=== PATIENT | female | born 1945 | race Caucasian/White ===

== ENCOUNTER 2021-01-22 17:07 | Inpatient (IN) ==
[2021-01-22] MEDS ORDERED: ONDANSETRON INJ 2 MG/ML 2 ML VIAL IV STA (17:45)
[2021-01-22] MEDS ORDERED: SODIUM CHLORIDE 0.9% 1000ML 1,000 ML IV STA (17:45)
--- NOTE | 2021-01-22 18:12 | XRay Report ---
XR chest 1V portable CLINICAL HISTORY: vomiting COMPARISON STUDY: 02/22/2020 FINDINGS: The cardiac and mediastinal contours remain stable. There is no failure. There is no focal pulmonary consolidation. There are no pleural effusions. There is a suspected prior left mastectomy.[ IMPRESSION: No active disease in the chest. ACT 112: Negative or not required by law. Electronically signed by: Anatoliy Gary M.D. 01/22/2021 6:10 PM
--- NOTE | 2021-01-22 18:13 | XRay Report ---
XR KUB/Abdomen 1 view CLINICAL HISTORY: Abdominal discomfort VOMITING COMPARISON STUDY: No previous studies for comparison. FINDINGS: There are no abnormally dilated loops of large or small bowel. Surgical clips are visualize d within the upper pelvis possibly related to a prior tubal ligation. IMPRESSION: Nonobstructive bowel gas pattern. ACT 112: Negative or not required by law. Electronically signed by: Anatoliy Gary M.D. 01/22/2021 6:11 PM
[2021-01-22 18:29] LABS: Hemoglobin 13.1 g/dL (12.0-16.0); Immature Granulocytes # (auto) 0.02 K/uL (0.00-0.02); Immature Granulocytes % (auto) 0.3 %; Lymphocytes # (auto) 0.91 K/uL (1.2-3.4); Lymphocytes % (auto) 11.5 %; Mean Corpuscular Hemoglobin 31.3 pg (25-34); Mean Corpuscular Hgb Conc 36.4 g/dL (32-36); Mean Corpuscular Volume 86.1 fL (80-100); Mean Platelet Volume 9.6 fL (7.4-10.4); Monocytes # (auto) 0.51 K/uL (0.11-0.59); Monocytes % (auto) 6.4 %; Neutrophils # (auto) 6.48 K/uL (1.4-6.5); Neutrophils % (auto) 81.8 %; Platelet Count 179 K/uL (130-400); RDW Coefficient of Variation 12.5 % (11.5-14.5); RDW Standard Deviation 40.3 fL (36.4-46.3); Red Blood Count 4.18 M/uL (4.2-5.4); White Blood Count 7.92 K/uL (4.8-10.8)
--- NOTE | 2021-01-22 18:42 | Emergency Department Note ---
Impression & Plan Weakness, Acute hyponatremia, Abnormal EKG, Nausea, COVID-19 ED Provider Note NAME: SEB HERRERA AGE: 75 SEX: F : 1945 ARRIVES VIA: Walk-In INFORMANT: Patient, ED PROVIDER(S): Dallas Morales DO CHIEF COMPLAINT: Dehydration HPI: The patient is a 75-year-old female who presented to the emergency department for an evaluation of generalized weakness. The patient was exposed to COVID-19 12 days ago. She started having symptoms approximately 9 days ago. Her symptoms have included headache as well as fatigue. She also notices a cough. She has had fever intermittently. She has been taking ibuprofen as well as acetaminophen for the symptoms. She called her family doctor today and was referred to the emergency department for possible dehydration. There is also concerned that the patient may be taking too much acetaminophen and ibuprofen. Her last dose of acetaminophen was earlier today. The patient states that she has been not able to eat because of decreased appetite. She also notices decreased taste. She currently denies having any chest pain or lower extremity swelling. She states that she has been compliant with her other medications. ROS: See above HPI for pertinent positives & negatives. A total of 10 systems reviewed and were otherwise negative. PAST MEDICAL HISTORY: See Below PAST SURGICAL HISTORY: See Below FAMILY HISTORY: See Below SOCIAL HISTORY: See Below HOME MEDICATIONS: See Below ALLERGIES: See Below VITALS: See Below PHYSICAL EXAMINATION: GENERAL: Patient is awake alert in no acute distress patient is resting comfortably and showing no signs of anxiety EYES: The conjunctivae are clear. The pupils are round and reactive. EARS, NOSE, MOUTH AND THROAT: The nose is without any evidence of any deformity. NECK: The neck is nontender and supple. RESPIRATORY: Normal respiratory effort is noted there is no evidence of wheezing rhonchi or rales CARDIOVASCULAR: Regular rate and rhythm noted there no murmurs rubs or gallops normal S1 normal S2. GASTROINTESTINAL: The abdomen is soft. Abdomen is nontender. MUSCULOSKELETAL/EXTREMITIES: There is no evidence of gross deformity full range of motion is noted in the hips and shoulders. SKIN: There is no obvious evidence of any rash. There are no petechiae, pallor or cyanosis noted. NEUROLOGIC: Patient is awake alert and oriented x3 strength is symmetric patellar reflexes are 2+ bilaterally MEDICAL DECISION MAKING: The patient is a 75-year-old female who presented to the emergency department for an evaluation of nausea and decreased p.o. intake. The patient was diagnosed with COVID-19. She has had symptoms for approximately 9 days. The patient had a positive Covid test last . Since that time she is had decreased intake and nausea. The patient was sent to the emergency department by her primary care physician's office for IV fluids and possible dehydration. I discussed the patient's laboratory and radiographic studies with her. She was found to have significant hyponatremia which may cause the patient's symptoms today. Because of the degree of hyponatremia and the patient symptomatology I did discuss this case with the on-call [facility] group. They have agreed to evaluate the patient in the emergency department for further management and disposition. Triage Nursing notes reviewed. Prior medical records reviewed Vital Signs: reviewed and remarkable for elevated blood pressure. Differential diagnosis: Infection, dehydration, metabolic abnormality, hypo/hyperglycemia, electrolyte disturbance, anemia, hypoxia, cardiac sources, intracerebral event, toxicologic, neurologic, as well as other pathologies. ER treatment provided: See below Diagnostics interpreted by me: ECG: EKG was obtained in the emergency department. My interpretation is sinus rhythm at 75 bpm. There was no ectopy. Inferior and low lateral ST depressions were noted. This tracing was compared to February [id number]. The ST segment depression does appear increased compared to previous otherwise no specific changes were noted. Cardiac Monitoring: An order was placed for continuous cardiac monitoring. The monitor shows a rate of 82 bpm with sinus rhythm. Laboratory studies: As stated above and show below. Imaging studies: See below Consultation(s): 2005: I discussed this case with Dr. Kincaid who is on-call for the [facility] group. He will evaluate the patient in the emergency department for further management and disposition. Past Med/Surg History Medical History DCIS (ductal carcinoma in situ) of breast Deep vein thrombosis LEFT THIGH RT KNEE OVER 35 YEARS AGO "AFTER CHILDBIRTH" Removal of ovarian cyst (07/11/13) Temporomandibular joint disorder Surgical History Family history of reaction to anesthesia SON-REQUIRED TO STAY LONGER AFTER ANESTHESIA PROCEDURE/? WITH DETAILS H/O ovarian cystectomy History of adenoidectomy 1953 History of anesthesia reaction AWARENESS BUT COULD NOT SPEAK/MOVE DURING RECOVERY FOR TUBAL LIGATION History of appendectomy History of bilateral tubal ligation 1982 History of colonoscopy 03/25/09 History of dilatation and curettage 1974 History of mastectomy 12/30/06 Left breast - partial mastectomy with lymphadenectomy History of tonsillectomy 1953 History of tooth extraction Hx of breast biopsy 11/29/06 - left breast stereotactic biopsy S/P breast reconstruction, left 2007 & 02/20/19 Family History Mother Family history of diabetes mellitus Diabetes Brother Family history of diabetes mellitus Grandmother (Maternal) Family history of diabetes mellitus Grandmother (Maternal) Diabetes Father Leukemia Prostate cancer Grandfather (Maternal) Stroke Other Breast cancer Dyslipidemia Social History Smoking Status: Former smoker Second Hand Exposure: No; Hx Alcohol Use: Yes Alcohol type: wine Hx Substance Use: No Preferred Language: Omani Communication Ability: Effective Mobile Tester Required: No Beliefs That Will Affect Care: None Current Living Situation: Alone current occupational status: retired Feels Safe at Home: Yes Dental Care, Regularly: Yes Seatbelt Use: always Sunscreen Use: No Assistive Devices: Contacts and Glasses Allergies Allergies Allergy/AdvReac Type Severity Reaction Status Date / Time No Known Drug Allergies Allergy Verified 12/13/19 09:20 Home Meds Home Medications Medication Instructions Recorded Confirmed Caltrate 600 plus D 1 tab PO QAM 02/04/19 01/22/21 alendronate [Fosamax] 1 tab PO WK 02/04/19 01/22/21 biotin 1 mg capsule 1 mg PO QAM cap 12/13/19 01/22/21 cholecalciferol (vitamin D3) 125 5,000 unit PO QAM tab 12/13/19 01/22/21 mcg (5,000 unit) tablet magnesium 250 mg tablet 250 mg PO QAM tab 12/13/19 01/22/21 multivit with 1 tab PO QAM tab 12/13/19 01/22/21 trunntkt-crfc-VO-lutein 8 mg iron-400 mcg-300 mcg tablet Results & Data (ED) Vital Signs Vital Signs - 24 hr 01/22/21 17:17 01/22/21 18:21 01/22/21 19:04 Temperature 37.0 C Temperature Source Temporal Artery Scan Pulse Rate 74 79 Respiratory Rate 18 16 Respiratory Effort / Characteristics Non-Labored Respiratory Depth Normal Respiratory Pattern Regular Blood Pressure 130/79 146/89 H Blood Pressure Mean 96 108 Blood Pressure Position Sitting Pulse Oximetry 99 98 Oxygen Delivery Method Room Air Room Air Sepsis Recent Fever Within 48 Hours Yes Sepsis New/Unexplained Change in Mental Status No Sepsis Action Taken by Nursing No Action Required 01/22/21 19:06 01/22/21 19:30 01/22/21 20:00 Temperature Temperature Source Pulse Rate 76 70 77 Respiratory Rate 14 15 20 Respiratory Effort / Characteristics Respiratory Depth Respiratory Pattern Blood Pressure 135/70 141/78 H Blood Pressure Mean 91 99 Blood Pressure Position Pulse Oximetry 97 99 97 Oxygen Delivery Method Sepsis Recent Fever Within 48 Hours Sepsis New/Unexplained Change in Mental Status Sepsis Action Taken by Jail Medications Current Medication List: was personally reviewed by me Laboratory Data Attestation: I reviewed the patient's lab results. Result diagrams: 01/22/21 18:13 01/22/21 18:13 Lab Results 01/22/21 01/22/21 01/22/21 Range/Units 18:13 18:13 18:13 WBC 7.92 (4.8-10.8) K/uL RBC 4.18 L (4.2-5.4) M/uL Hgb 13.1 (12.0-16.0) g/dL Hct 36.0 L (37-47) % MCV 86.1 (80-100) fL MCH 31.3 (25-34) pg MCHC 36.4 H (32-36) g/dL RDW Std Deviation 40.3 (36.4-46.3) fL RDW Coeff of Shea 12.5 (11.5-14.5) % Plt Count 179 (130-400) K/uL MPV 9.6 (7.4-10.4) fL Immature Gran % (Auto) 0.3 % Neut % (Auto) 81.8 % Lymph % (Auto) 11.5 % [place] % (Auto) 6.4 % Eos % (Auto) 0.0 % Baso % (Auto) 0.0 % Neut # (Auto) 6.48 (1.4-6.5) K/uL Lymph # (Auto) 0.91 L (1.2-3.4) K/uL [place] # (Auto) 0.51 (0.11-0.59) K/uL Eos # (Auto) 0.00 (0-0.5) K/uL Baso # (Auto) 0.00 (0-0.2) K/uL Immature Gran # (Auto) 0.02 (0.00-0.02) K/uL PT 10.2 (9.0-12.0) Seconds INR 1.0 (0.9-1.1) APTT 29.7 (21.0-31.0) Seconds PTT Ratio 1.1 Sodium 128 L (136-145) mmol/L Potassium 3.4 L (3.5-5.1) mmol/L Chloride 96 L (98-107) mmol/L Carbon Dioxide 25 (21-32) mmol/L Anion Gap 7.0 (3-11) BUN 8 (7-18) mg/dl Creatinine 0.52 L (0.6-1.2) mg/dl Est Cr Clr Drug Dosing Not Reportable Est GFR ( Amer) 109.9 Est GFR (Non-Af Amer) 94.8 BUN/Creatinine Ratio 14.5 (10-20) Glucose 117 H (70-99) mg/dl Osmolality (280-300) mOsm/kg Calcium 8.6 (8.5-10.1) mg/dl Magnesium 2.0 (1.8-2.4) mg/dl Total Bilirubin 0.7 (0.2-1) mg/dl AST 19 (15-37) U/L ALT 24 (12-78) U/L Alkaline Phosphatase 57 (45-117) U/L Troponin I < 0.015 (0-0.045) ng/ml Total Protein 7.2 (6.4-8.2) gm/dl Albumin 3.6 (3.4-5.0) gm/dl Globulin 3.6 (2.5-4.0) gm/dl Albumin/Globulin Ratio 1.0 (0.9-2) Lipase 101 (73-393) U/L Urine Color Urine Appearance (Clear) Urine pH (4.5-7.5) Ur Specific Sylvester (1.000-1.030) Urine Protein (Negative) Urine Glucose (UA) (Negative) Urine Ketones (Negative) Urine Blood (Negative) Urine Nitrite (Negative) Urine Bilirubin (Negative) Urine Urobilinogen (Negative) Ur Leukocyte Esterase (Negative) Urine Osmolality (500-800) mOsm/kg Ur Random Sodium mmol/L 01/22/21 01/22/21 01/22/21 Range/Units 18:13 18:13 19:00 WBC (4.8-10.8) K/uL RBC (4.2-5.4) M/uL Hgb (12.0-16.0) g/dL Hct (37-47) % MCV (80-100) fL MCH (25-34) pg MCHC (32-36) g/dL RDW Std Deviation (36.4-46.3) fL RDW Coeff of Shea (11.5-14.5) % Plt Count (130-400) K/uL MPV (7.4-10.4) fL Immature Gran % (Auto) % Neut % (Auto) % Lymph % (Auto) % [place] % (Auto) % Eos % (Auto) % Baso % (Auto) % Neut # (Auto) (1.4-6.5) K/uL Lymph # (Auto) (1.2-3.4) K/uL [place] # (Auto) (0.11-0.59) K/uL Eos # (Auto) (0-0.5) K/uL Baso # (Auto) (0-0.2) K/uL Immature Gran # (Auto) (0.00-0.02) K/uL PT (9.0-12.0) Seconds INR (0.9-1.1) APTT (21.0-31.0) Seconds PTT Ratio Sodium (136-145) mmol/L Potassium (3.5-5.1) mmol/L Chloride (98-107) mmol/L Carbon Dioxide (21-32) mmol/L Anion Gap (3-11) BUN (7-18) mg/dl Creatinine (0.6-1.2) mg/dl Est Cr Clr Drug Dosing Est GFR ( Amer) Est GFR (Non-Af Amer) BUN/Creatinine Ratio (10-20) Glucose (70-99) mg/dl Osmolality 269 L (280-300) mOsm/kg Calcium (8.5-10.1) mg/dl Magnesium (1.8-2.4) mg/dl Total Bilirubin (0.2-1) mg/dl AST (15-37) U/L ALT (12-78) U/L Alkaline Phosphatase (45-117) U/L Troponin I Cancelled (0-0.045) ng/ml Total Protein (6.4-8.2) gm/dl Albumin (3.4-5.0) gm/dl Globulin (2.5-4.0) gm/dl Albumin/Globulin Ratio (0.9-2) Lipase (73-393) U/L Urine Color Yellow Urine Appearance Clear (Clear) Urine pH 7.0 (4.5-7.5) Ur Specific Sylvester 1.007 (1.000-1.030) Urine Protein Negative (Negative) Urine Glucose (UA) Negative (Negative) Urine Ketones 1+ H (Negative) Urine Blood Negative (Negative) Urine Nitrite Negative (Negative) Urine Bilirubin Negative (Negative) Urine Urobilinogen Negative (Negative) Ur Leukocyte Esterase Negative (Negative) Urine Osmolality (500-800) mOsm/kg Ur Random Sodium mmol/L 01/22/21 01/22/21 Range/Units 19:00 19:00 WBC (4.8-10.8) K/uL RBC (4.2-5.4) M/uL Hgb (12.0-16.0) g/dL Hct (37-47) % MCV (80-100) fL MCH (25-34) pg MCHC (32-36) g/dL RDW Std Deviation (36.4-46.3) fL RDW Coeff of Shea (11.5-14.5) % Plt Count (130-400) K/uL MPV (7.4-10.4) fL Immature Gran % (Auto) % Neut % (Auto) % Lymph % (Auto) % [place] % (Auto) % Eos % (Auto) % Baso % (Auto) % Neut # (Auto) (1.4-6.5) K/uL Lymph # (Auto) (1.2-3.4) K/uL [place] # (Auto) (0.11-0.59) K/uL Eos # (Auto) (0-0.5) K/uL Baso # (Auto) (0-0.2) K/uL Immature Gran # (Auto) (0.00-0.02) K/uL PT (9.0-12.0) Seconds INR (0.9-1.1) APTT (21.0-31.0) Seconds PTT Ratio Sodium (136-145) mmol/L Potassium (3.5-5.1) mmol/L Chloride (98-107) mmol/L Carbon Dioxide (21-32) mmol/L Anion Gap (3-11) BUN (7-18) mg/dl Creatinine (0.6-1.2) mg/dl Est Cr Clr Drug Dosing Est GFR ( Amer) Est GFR (Non-Af Amer) BUN/Creatinine Ratio (10-20) Glucose (70-99) mg/dl Osmolality (280-300) mOsm/kg Calcium (8.5-10.1) mg/dl Magnesium (1.8-2.4) mg/dl Total Bilirubin (0.2-1) mg/dl AST (15-37) U/L ALT (12-78) U/L Alkaline Phosphatase (45-117) U/L Troponin I (0-0.045) ng/ml Total Protein (6.4-8.2) gm/dl Albumin (3.4-5.0) gm/dl Globulin (2.5-4.0) gm/dl Albumin/Globulin Ratio (0.9-2) Lipase (73-393) U/L Urine Color Urine Appearance (Clear) Urine pH (4.5-7.5) Ur Specific Sylvester (1.000-1.030) Urine Protein (Negative) Urine Glucose (UA) (Negative) Urine Ketones (Negative) Urine Blood (Negative) Urine Nitrite (Negative) Urine Bilirubin (Negative) Urine Urobilinogen (Negative) Ur Leukocyte Esterase (Negative) Urine Osmolality 200 L (500-800) mOsm/kg Ur Random Sodium 32 mmol/L Administered Medications Discontinued Medications Sodium Chloride (Nss 1000ml) 1,000 mls @ 999 mls/hr IV .Q1H1M STA Stop: 01/22/21 18:45 Last Infusion: 01/22/21 20:10 Dose: 0 mls/hr Documented by: [id number] Admin: 01/22/21 18:21 Dose: 999 mls/hr Documented by: [id number] Ondansetron HCl (Ondansetron Inj 2 Mg/Ml 2 Ml Vial) 4 mg IV NOW STA Stop: 01/22/21 17:46 Last Admin: 01/22/21 18:21 Dose: 4 mg Documented by: [id number] Imaging Data Radiologist's Impression: Chest X-Ray 01/22/21 17:45 XR chest 1V portable CLINICAL HISTORY: vomiting COMPARISON STUDY: 02/22/2020 FINDINGS: The cardiac and mediastinal contours remain stable. There is no failure. There is no focal pulmonary consolidation. There are no pleural effusions. There is a suspected prior left mastectomy.[ IMPRESSION: No active disease in the chest. ACT 112: Negative or not required by law. Electronically signed by: Anatoliy Gary M.D. 01/22/2021 6:10 PM KUB X-Ray 01/22/21 17:45 XR KUB/Abdomen 1 view CLINICAL HISTORY: Abdominal discomfort VOMITING COMPARISON STUDY: No previous studies for comparison. FINDINGS: There are no abnormally dilated loops of large or small bowel. Surg ical clips are visualized within the upper pelvis possibly related to a prior tubal ligation. IMPRESSION: Nonobstructive bowel gas pattern. ACT 112: Negative or not required by law. Electronically signed by: Anatoliy Gary M.D. 01/22/2021 6:11 PM Discharge Plan Visit Data Chief Complaint: Referred by Doctor Stated Complaint: DEHYDRATION, COVID + ED Provider: Dallas Morales Discharge Problem: Weakness, Acute hyponatremia, Abnormal EKG, Nausea, COVID-19 Patient Disposition: Being Evaluated by Hospitalist Condition: Good Forms Stand Alone Forms: [facility] Prescriptions Prescriptions: No Action alendronate [Fosamax] 70 mg Tablet 1 tab PO WK RF: 0 Caltrate 600 plus D 600 mg (1,500 mg)-800 unit Tablet,Chewable 1 tab PO QAM RF: 0 cholecalciferol (vitamin D3) [Vitamin D3] 125 mcg (5,000 unit) tablet 5,000 unit PO QAM RF: 0 biotin 1 mg capsule 1 mg PO QAM RF: 0 Centrum Silver Women 8 mg iron-400 mcg-300 mcg tablet 1 tab PO QAM RF: 0 magnesium 250 mg tablet 250 mg PO QAM RF: 0 Referrals Referrals: Manas Uribe, [Primary Care Provider] -
[2021-01-22 18:43] LABS: Alanine Aminotransferase 24 U/L (12-78); Albumin Level 3.6 gm/dl (3.4-5.0); Aspartate Aminotransferase 19 U/L (15-37); BUN Creatinine Ratio 14.5 (10-20); Blood Urea Nitrogen 8 mg/dl (7-18); Calcium 8.6 mg/dl (8.5-10.1); Carbon Dioxide 25 mmol/L (21-32); Chloride 96 mmol/L (98-107); Est GFR (African American) 109.9; Est GFR (Non-African American) 94.8; Glucose 117 mg/dl (70-99); Lipase 101 U/L (73-393); Potassium 3.4 mmol/L (3.5-5.1); Sodium 128 mmol/L (136-145)
[2021-01-22 18:46] LABS: Alkaline Phosphatase 57 U/L (45-117); Bilirubin,Total 0.7 mg/dl (0.2-1); Globulin 3.6 gm/dl (2.5-4.0); Total Protein 7.2 gm/dl (6.4-8.2)
[2021-01-22 19:12] LABS: Partial Thromboplastin Ratio 1.1; Partial Thromboplastin Time 29.7 Seconds (21.0-31.0); Prothrombin Time 10.2 Seconds (9.0-12.0)
[2021-01-22 19:13] LABS: Troponin I < 0.015 ng/ml (0-0.045)
[2021-01-22 19:18] LABS: Appearance Urine Clear (Clear); Bilirubin Urine Negative (Negative); Blood Urine Negative (Negative); Color Urine Yellow; Glucose Urine UA Negative (Negative); Ketones Urine 1+ (Negative); Leukocyte Esterase Urine Negative (Negative); Nitrite Urine Negative (Negative); Protein Urine Negative (Negative); Specific Gravity Urine 1.007 (1.000-1.030); Urobilinogen Urine Negative (Negative)
[2021-01-22] MEDS ORDERED: POTASSIUM CHLORIDE CRTAB 20 MEQ TABCR PO STA (21:56)
[2021-01-22] MEDS ORDERED: ACETAMINOPHEN 325 MG TAB PO PRN (21:56)
[2021-01-22] MEDS ORDERED: NITROGLYCERIN SL 0.4 MG/TAB TAB SL PRN (21:56)
[2021-01-22] MEDS ORDERED: ONDANSETRON INJ 2 MG/ML 2 ML VIAL IV PRN (21:56)
[2021-01-22] MEDS ORDERED: D5W AND NSS 1,000 ML IV SCH (21:56)
--- NOTE | 2021-01-22 23:36 | History and Physical Report ---
DATE OF ADMISSION: 01/22/2021 CHIEF COMPLAINT: COVID and dehydration. HISTORY OF PRESENT ILLNESS: This is a 75-year-old female with past medical history significant for prediabetes, osteoporosis, vitamin D deficiency, ductal carcinoma in situ of breast, status post left simple mastectomy in 2006, who lives alone, was recently diagnosed with COVID, was sent in by family doctor because the patient is not doing great at home and possibly getting dehydrated. The patient lives alone. The patient got exposed to COVID with a friend who was recently in the hospital on 01/10. On 01/13, she started with fever, low back pain and since then she is having generalized body ache, weakness, poor appetite, on and off fevers, nausea, on and off headaches. She was tested for COVID on 01/19 and was positive. For a whole week, she was just lying on the couch and not eating or drinking, and not feeling great. Denies any shortness of breath, no cough, no chest pain. Has some congestion in the face. No abdominal pain. Normal bowel and bladder movements. No hematuria or blood in the stools. No rash, no swelling in the legs. Ambulating. Because of ongoing illness, she was advised to come to the hospital. In the ER, she was found to have sodium of 128. She is saturating okay on room air, resting comfortably and hemodynamically stable. ALLERGIES: No known drug allergies. PAST MEDICAL HISTORY: As mentioned above. PAST SURGICAL HISTORY: Colonoscopy, left simple mastectomy, appendectomy. MEDICATIONS: The patient is on alendronate 1 tablet p.o. weekly, biotin 1 mg capsule a.m., Caltrate plus vitamin D 1 tablet a.m., vitamin D 5000 units tablet a.m., magnesium 250 mg p.o. a.m., multivitamin with minerals 1 tablet p.o. a.m. FAMILY HISTORY: Significant for mother had arrhythmia, mild diabetes, osteoporosis. Father had leukemia, prostate cancer. Sister had breast cancer at age of 50, sister has diabetes at the age of 66. SOCIAL HISTORY: , lives alone. Quit smoking in 1972, smoked less than 1-pack-year. No alcohol use, no drug use. REVIEW OF SYMPTOMS: As per HPI. Rest of the review of systems is negative. PHYSICAL EXAMINATION: GENERAL: The patient is of moderate build, not in acute distress. VITAL SIGNS: Temperature 37, pulse 74, respiratory rate 18, blood pressure 140/71, oxygen 97% on room air. HEENT: Pupils equal, round, reactive to light. Oral mucosa somewhat dry. NECK: No neck masses seen. CARDIOVASCULAR: S1, S2 heard, regular rate and rhythm, no murmur, no gallop. RESPIRATORY SYSTEM: Normal AP diameter. No accessory muscle use. No wheezing, no crackles. ABDOMEN: Soft, bowel sounds present, nontender. No distention. CENTRAL NERVOUS SYSTEM: Cranial nerves II-XII grossly intact. Nonfocal. EXTREMITIES: No edema, no erythema. LABORATORY DATA: WBC 7.9, hemoglobin 13.1, hematocrit 36, platelets 179. PT 10.2, INR 1, APTT 39.7. Sodium 128, potassium 3.4, chloride 96, bicarbonate 25, BUN 8, creatinine 0.5, serum glucose 117. Serum osmolality 269, calcium 8.6, magnesium 2, total bilirubin 0.7, AST 19, ALT 24, alkaline phosphatase 57. Troponin I less than 0.015. Lipase 101. Urinalysis negative. Urine osmolality 200, urine random sodium 32. KUB x-ray, no acute findings. Chest x-ray, no acute findings. EKG: Normal sinus rhythm, rate of 75, possible left atrial enlargement, nonspecific T-wave abnormality in inferior leads. ASSESSMENT AND PLAN: This 75-year-old female, who was recently diagnosed with COVID, presents with generalized weakness, dehydration and hyponatremia. 1. Hyponatremia: Looks like hypotonic hyponatremia, most likely secondary to poor p.o. intake. Getting fluids. We will follow the laboratories in the a.m. If not getting better, consult nephrology. We do not want to aggressively correct it. Start on D5 normal saline at 80 mL/per hour. 2. COVID-19: The patient has generalized weakness, poor appetite, body aches, congestion in the face, on and off fevers, no loss of sense of smell or taste, she is saturating 97% on room air. Chest x-ray is okay. She does not require any treatment currently. We will follow the inflammatory markers, monitor in the med-telemetry and also we will follow the repeat EKGs and troponin levels. 3. History of prediabetes: Follow hemoglobin A1c level. The patient is currently getting D5 normal saline.monitor sugars. 4. Hypokalemia: We will replace. 5. Vitamin D deficiency: Please continue calcium and vitamin D supplements. 6. History of ductal carcinoma in situ of breast, status post partial left mastectomy in 2006. 7. Deep venous thrombosis prophylaxis: Lovenox. DISPOSITION: Closely monitor in the med-tele. Expect to discharge home and follow with family doctor. LAURA
[2021-01-23 06:16] LABS: Basophils # (auto) 0.01 K/uL (0-0.2); Basophils % (auto) 0.2 %; Hemoglobin 11.9 g/dL (12.0-16.0); Immature Granulocytes # (auto) 0.01 K/uL (0.00-0.02); Immature Granulocytes % (auto) 0.2 %; Lymphocytes # (auto) 1.21 K/uL (1.2-3.4); Lymphocytes % (auto) 22.3 %; Mean Corpuscular Hemoglobin 30.5 pg (25-34); Mean Corpuscular Volume 87.2 fL (80-100); Mean Platelet Volume 9.7 fL (7.4-10.4); Monocytes # (auto) 0.44 K/uL (0.11-0.59); Monocytes % (auto) 8.1 %; Neutrophils # (auto) 3.75 K/uL (1.4-6.5); Neutrophils % (auto) 69.2 %; Platelet Count 165 K/uL (130-400); RDW Coefficient of Variation 12.8 % (11.5-14.5); RDW Standard Deviation 41.2 fL (36.4-46.3); White Blood Count 5.42 K/uL (4.8-10.8)
[2021-01-23 06:42] LABS: Blood Urea Nitrogen 5 mg/dl (7-18); Carbon Dioxide 27 mmol/L (21-32); Chloride 106 mmol/L (98-107); Creatinine Clr Calc Pharmacy 92.1 ml/min; Est GFR (African American) 116.1; Est GFR (Non-African American) 100.1; Glucose 110 mg/dl (70-99); Magnesium 2.3 mg/dl (1.8-2.4); Potassium 3.7 mmol/L (3.5-5.1); Sodium 137 mmol/L (136-145)
[2021-01-23 06:52] LABS: C Reactive Protein 8.89 mg/dl (0-0.29); Ferritin 315.2 ng/ml (8-388); Phosphorus 1.8 mg/dl (2.5-4.9); Troponin I < 0.015 ng/ml (0-0.045)
[2021-01-23 07:23] LABS: D Dimer 330 ug/L FEU (0-500)
[2021-01-23 08:27] LABS: Estimated Average Glucose 126 mg/dl
[2021-01-23] MEDS: POT PHOSPHATE MONOBASIC W/ SOD TAB PO SCH ×4 (09:02→20:42)
[2021-01-23] MEDS: MAGNESIUM OXIDE 400 MG TAB PO SCH (09:03)
[2021-01-23] MEDS: ENOXAPARIN INJ 40 MG/0.4 ML SYR SQ SCH (09:03)
[2021-01-23] MEDS: CEROVITE ADV FORMULA TAB PO SCH (09:03)
[2021-01-23] MEDS: CHOLECALCIFEROL 1,000 UNITS 25 MCG TAB PO SCH (09:03)
[2021-01-23] MEDS: CALCIUM 600MG + VIT D 400 IU TAB PO SCH (09:03)
--- NOTE | 2021-01-23 15:01 | Hospitalist Progress Note ---
Date of Service January 23, 2021 Assessment & Plan (1) COVID-19: Patient presented with dehydration/acute hyponatremia secondary to poor p.o. intake, COVID-19 test positive Not have any respiratory symptoms no cough no fever chills or shortness of breath or hypoxia remains in room air GI symptoms improved with IV hydration, Patient reports feeling much better today, Dysphagia: Reports of difficulty in swallowing tablets, no complaint of sore throat Ordered for soft diet, crush meds in pudding, aspiration precaution , speech eval requested (2) Weakness: (3) Acute hyponatremia: Due to poor p.o. intake, on admission sodium was 128, given IV fluids Sodium corrected to normal, Encourage p.o. intake IV fluids discontinued p.m. repeat BMP in a.m. Disposition: Continue to monitor and medical floor for next 1 to 2 days, possible discharge home once adequate p.o. intake established, generalized weakness is improved Admission and Anticipated Discharge Date Admission Date: January 22, 2021 Subjective Follow-up visit for COVID-19 infection, dehydration/hyponatremia Patient reports feeling much better today, appetite has improved, no nausea vomiting No cough no shortness of breath no fever or chills Review of Systems Review of Systems: All systems reviewed & are unremarkable except as noted in Subjective Physical Exam Physical Exam: Physical exam: General: No acute distress, alert awake oriented x3 HEENT: PERRLA, EOMI, Heart: Regular S1-S2, no carotid bruit, no JVD, no lower extremity edema Lungs: Clear to auscultate, no wheeze or rales Abdomen: Soft nontender, no organomegaly Extremity: No cyanosis, no deformity, normal strength 5 out of 5 with upper and lower Neuro: No focal neurological deficit normal speech, normal visual field, Motor strength : normal both upper and lower extremity, sensation intact Psych: Alert awake oriented x3, normal affect Results & Data Results & Data ([facility]) Vital Signs (Past 12 Hours) Vital Signs Temp Pulse Pulse Resp BP Pulse Ox 01/23/21 11:36 37.1 C 69 17 100/67 97 01/23/21 08:04 59 L 01/23/21 07:12 37.1 C 66 18 100/53 L 96 01/23/21 06:07 68
--- NOTE | 2021-01-23 17:30 | Electrocardiogram Report ---
Test Reason : Blood Pressure : / mmHG Vent. Rate : 075 BPM Atrial Rate : 075 BPM P-R Int : 158 ms QRS Dur : 066 ms QT Int : 402 ms P-R-T Axes : 072 026 066 degrees QTc Int : 448 ms Normal sinus rhythm Possible Left atrial enlargement Low voltage QRS Nonspecific ST abnormality Abnormal ECG When compared with ECG of 03-FEB-2019 15:50, ST now depressed in Anterior leads Nonspecific T wave abnormality now evident in Inferior leads Confirmed by Cristopher Tang ([id number]) on 01/23/2021 5:29:45 PM Referred By: Manas Uribe Confirmed By:Timmy Tang
--- NOTE | 2021-01-23 17:35 | Electrocardiogram Report ---
Test Reason : Blood Pressure : / mmHG Vent. Rate : 068 BPM Atrial Rate : 068 BPM P-R Int : 164 ms QRS Dur : 078 ms QT Int : 412 ms P-R-T Axes : 072 022 079 degrees QTc Int : 438 ms Normal sinus rhythm Nonspecific ST abnormality Abnormal ECG When compared with ECG of 22-JAN-2021 19:01, (unconfirmed) Nonspecific T wave abnormality no longer evident in Inferior leads Confirmed by Cristopher Tang ([id number]) on 01/23/2021 5:35:33 PM Referred By: Manas Uribe Confirmed By:Timmy Tang
[2021-01-24 08:01] LABS: BUN Creatinine Ratio 21.5 (10-20); Calcium 8.7 mg/dl (8.5-10.1); Creatinine Clr Calc Pharmacy 86.2 ml/min; Est GFR (African American) 113.6; Phosphorus 2.7 mg/dl (2.5-4.9); Potassium 3.8 mmol/L (3.5-5.1)
[2021-01-24] MEDS: CEROVITE ADV FORMULA TAB PO SCH (08:09)
[2021-01-24] MEDS: POT PHOSPHATE MONOBASIC W/ SOD TAB PO SCH ×2 (08:09→13:04)
[2021-01-24] MEDS: MAGNESIUM OXIDE 400 MG TAB PO SCH (08:09)
[2021-01-24] MEDS: CHOLECALCIFEROL 1,000 UNITS 25 MCG TAB PO SCH (08:09)
[2021-01-24] MEDS: ENOXAPARIN INJ 40 MG/0.4 ML SYR SQ SCH (08:09)
[2021-01-24] MEDS: CALCIUM 600MG + VIT D 400 IU TAB PO SCH (08:09)
--- NOTE | 2021-01-24 14:44 | Hospitalist Progress Note ---
Date of Service January 24, 2021 Assessment & Plan (1) COVID-19: Patient presented with dehydration/acute hyponatremia secondary to poor p.o. intake, COVID-19 test positive on 01/19/2021 Does not have any respiratory symptoms no cough no fever chills or shortness of breath or hypoxia remains in room air GI symptoms improved with IV hydration, Patient reports feeling much better today, Tolerating diet, no nausea or abdominal pain, Still feels tired and weak counseling provided diet after viral infection that is usually common, Encouraged her to drink plenty of fluids, adequate rest, increase activity as tolerated Dysphagia: Reports of difficulty in swallowing tablets, no complaint of sore throat Ordered for soft diet, crush meds in pudding, aspiration precaution , speech eval requested (2) Weakness: Gait improved, patient able to walk, do ADLs independently (3) Acute hyponatremia: Due to poor p.o. intake, on admission sodium was 128, given IV fluids Sodium improved to 137. A.m. lab shows sodium 133, no complaint of nausea vomiting Patient is encouraged to drink fluids Ordered gentle hydration, repeat BMP in a.m. Disposition: Possible discharge home tomorrow COVID-19 isolation: Patient reports, exposure to COVID-19 positive person on 01/10/2021-14 days back started to have symptoms on 01/13/2021-her symptoms included mostly headache, fatigue, weakness Had nonproductive cough, which has resolved, Intermittent fever Outpatient COVID-19 test positive on 01/19/2021 On admission patient was afebrile, no hypoxia chest x-ray showed no active disease At present patient has minimum symptoms, almost resolution of GI issues, persistent fatigue some, weakness, mild hyponatremia Discussed with infectious control Isolation/airborne precaution can be discontinued tomorrow 01/25/2021 Admission and Anticipated Discharge Date Admission Date: January 22, 2021 Subjective Follow-up visit for COVID-19 infection, dehydration/hyponatremia Patient states she is doing much better today, no nausea vomiting, Finished her meals, able to sit on a chair, walk in the room without any discomfort Still feels weak, but much improved since admission Patient is afebrile, no complaint of cough, shortness of breath or dyspnea on exertion, vitals stable Review of Systems Review of Systems: All systems reviewed & are unremarkable except as noted in Subjective Physical Exam Physical Exam: Physical exam: General: No acute distress, alert awake oriented x3 HEENT: PERRLA, EOMI, Heart: Regular S1-S2, no carotid bruit, no JVD, no lower extremity edema Lungs: Clear to auscultate, no wheeze or rales Abdomen: Soft nontender, no organomegaly Extremity: No cyanosis, no deformity, normal strength 5 out of 5 with upper and lower Neuro: No focal neurological deficit normal speech, normal visual field, Motor strength : normal both upper and lower extremity, sensation intact Psych: Alert awake oriented x3, normal affect Results & Data Results & Data ([facility]) Vital Signs (Past 12 Hours) Vital Signs Temp Pulse Pulse Resp BP BP Pulse Ox 01/24/21 11:07 36.8 C 63 18 97/61 L 97 01/24/21 07:22 54 L 01/24/21 07:15 36.8 C 54 L 18 107/54 L 96 01/24/21 03:09 36.9 C 57 L 18 100/57 L 95
[2021-01-24] MEDS ORDERED: SODIUM CHLORIDE 0.9% 1000ML 1,000 ML IV SCH (15:00)
[2021-01-24] MEDS ORDERED: LOPERAMIDE HCL 2 MG CAP PO PRN (15:43)
[2021-01-24] MEDS: ADVANCED PROBIOTIC 1250 MG CAPSULE PO SCH (15:59)
[2021-01-25 07:31] LABS: BUN Creatinine Ratio 15.7 (10-20); Calcium 8.8 mg/dl (8.5-10.1); Creatinine Clr Calc Pharmacy 81.1 ml/min; Est GFR (African American) 111.3; Potassium 3.7 mmol/L (3.5-5.1)
[2021-01-25] MEDS: ADVANCED PROBIOTIC 1250 MG CAPSULE PO SCH (08:22)
[2021-01-25] MEDS: CHOLECALCIFEROL 1,000 UNITS 25 MCG TAB PO SCH (08:22)
[2021-01-25] MEDS: ENOXAPARIN INJ 40 MG/0.4 ML SYR SQ SCH (08:22)
[2021-01-25] MEDS: CEROVITE ADV FORMULA TAB PO SCH (08:23)
[2021-01-25] MEDS: CALCIUM 600MG + VIT D 400 IU TAB PO SCH (08:23)
[2021-01-25] MEDS: MAGNESIUM OXIDE 400 MG TAB PO SCH (08:23)
--- NOTE | 2021-01-25 08:35 | Communication Note ---
Date of Service: January 25, 2021 Per current CDC guideline -airborne isolation can be discontinued after 10 days of onset of symptoms /positive test -if pt remains asymptomatic , no fever without fever reducing drugs for 24 hs pt was symptomatic since 01/13/21 -with fever , nasal congestion , generalized weakness , GI symptoms symptoms has resoled now Discussed with infectious control@[facility] Isolation/airborne precaution can be discontinued today 01/25/2021. Dr Raymond will see the patient today -updated Carmelita Barbosa MD
[2021-01-25] MEDS ORDERED: VITAMIN B COMPLEX TAB PO SCH (09:00)
--- NOTE | 2021-01-25 12:23 | Hospitalist Progress Note ---
Date of Service January 25, 2021 Assessment & Plan (1) COVID-19: COVID 19 Infection COVID-19 test positive on 01/19/2021 CXR:No active disease in the chest. Saturating well on room air No treatment indicated currently Conservative management Symptomatically improved Dysphagia: Resolved Tolerates diet Speech eval completed (2) Weakness: Secondary to above Improved (3) Acute hyponatremia: Likely prerenal Due to decreased oral intake Sodium levels normalized Received IV fluids DVT Px: Lovenox SQ Admission and Anticipated Discharge Date Admission Date: January 22, 2021 Subjective Patient is seen and examined at bedside States having intermittent nausea but otherwise feels well Appetite improved Tolerating diet Denies chest pain, shortness of breath, cough, diarrhea, abdominal pain Offers no other complaints Saturating well on room air Review of Systems Review of Systems: All systems reviewed & are unremarkable except as noted in HPI & below Physical Exam Physical Exam: Physical Exam: Vitals signs as noted above General Appearance:Thin, no apparent distress Head: normocephalic, Atraumatic Eyes: normal inspection, EOMI Neck: supple, Trachea midline Respiratory/Chest: Decreased breath sounds, CTA Cardiovascular: S1, S2, No murmur Abdomen/GI:Soft, Non tender, Bowel sounds present Extremities/Musculoskeletal:normal inspection, no edema Neurologic/Psych:AAOX3, grossly no focal neurological deficits Skin: normal color, warm Results & Data Results & Data ([facility]) Vital Signs (Past 12 Hours) Vital Signs Temp Pulse Resp BP Pulse Ox 01/25/21 11:19 36.8 C 56 L 18 104/62 97 01/25/21 07:11 36.7 C 53 L 19 118/[address] [facility] 01/25/21 06:15 Sodium 136 Potassium 3.7 Chloride 104 Carbon Dioxide 29 BUN 8 Creatinine 0.50 L Glucose 94 Calcium 8.8
--- NOTE | 2021-01-25 14:07 | Discharge Summary ---
Date of Service January 25, 2021 Admission HPI Per Admitting Provider CHIEF COMPLAINT: COVID and dehydration. HISTORY OF PRESENT ILLNESS: This is a 75-year-old female with past medical history significant for prediabetes, osteoporosis, vitamin D deficiency, ductal carcinoma in situ of breast, status post left simple mastectomy in 2006, who lives alone, was recently diagnosed with COVID, was sent in by family doctor because the patient is not doing great at home and possibly getting dehydrated. The patient lives alone. The patient got exposed to COVID with a friend who was recently in the hospital on 01/10. On 01/13, she started with fever, low back pain and since then she is having generalized body ache, weakness, poor appetite, on and off fevers, nausea, on and off headaches. She was tested for COVID on 01/19 and was positive. For a whole week, she was just lying on the couch and not eating or drinking, and not feeling great. Denies any shortness of breath, no cough, no chest pain. Has some congestion in the face. No abdominal pain. Normal bowel and bladder movements. No hematuria or blood in the stools. No rash, no swelling in the legs. Ambulating. Because of ongoing illness, she was advised to come to the hospital. In the ER, she was found to have sodium of 128. She is saturating okay on room air, resting comfortably and hemodynamically stable.] Admission Exam Per Admitting Provider PHYSICAL EXAMINATION: GENERAL: The patient is of moderate build, not in acute distress. VITAL SIGNS: Temperature 37, pulse 74, respiratory rate 18, blood pressure 140/71, oxygen 97% on room air. HEENT: Pupils equal, round, reactive to light. Oral mucosa somewhat dry. NECK: No neck masses seen. CARDIOVASCULAR: S1, S2 heard, regular rate and rhythm, no murmur, no gallop. RESPIRATORY SYSTEM: Normal AP diameter. No accessory muscle use. No wheezing, no crackles. ABDOMEN: Soft, bowel sounds present, nontender. No distention. CENTRAL NERVOUS SYSTEM: Cranial nerves II-XII grossly intact. Nonfocal. EXTREMITIES: No edema, no erythema. Principal Diagnosis COVID 19 Infection Acute hyponatremia Discharge Data Allergies Allergy/AdvReac Type Severity Reaction Status Date / Time No Known Drug Allergies Allergy Verified 12/13/19 09:20 Consultations 01/22/21 19:49 ED Decision to Admit Stat Procedures Performed CXR: No active disease in the chest. KUB: Nonobstructive bowel gas pattern. Hospital Course (1) COVID-19: COVID 19 Infection COVID-19 test positive on 01/19/2021 CXR:No active disease in the chest. Saturating well on room air No treatment indicated currently Conservative management Symptomatically improved Dysphagia: Resolved Tolerates diet Speech eval completed (2) Weakness: Secondary to above Improved (3) Acute hyponatremia: Likely prerenal Due to decreased oral intake Sodium levels normalized Received IV fluids DVT Px: Lovenox SQ Total Time Total Time Spent Total Time Spent (In Minutes): 42 minutes Total Time Includes: Examination of the Patient, Discharge Planning, Medication Reconciliation, Communication With Other Providers and Other Discharge Plan Discharge Items Patient Disposition: Home - Self-Care Reason For Visit: REF BY DOCTOR Discharge Diagnosis: COVID 19 infection Dehydration/nausea: Resolved Acute hyponatremia: Resolved Generalized weakness: Resolved Condition on Discharge: Good Activity: Resume your previous activity Exercise/Sports: Gradually increase as tolerated Non-emergency contact: Primary Care Provider Call non-emergency contact if: you have any medication questions, your symptoms worsen and your pain is concerning for you Follow-up/Referrals: Manas Uribe DO [Primary Care Provider] - 01/31/21 11:00 am (Date & Time 01/31/2021 11:00 AM Provider Manas Uribe DO Department [facility] PLEASE NOTE THAT THIS IS A TELEHEALTH APPOINTMENT. PLEASE FOLLOW THE INSTRUCTIONS PROVIDED IN YOUR EMAIL. IF YOU HAVE ANY QUESTIONS REGARDING THIS APPOINTMENT, PLEASE CALL ) Diet: Regular Addtl Attending Provider Instructions: Please take all medications as instructed on discharge list below. It is recommended that you follow-up with your primary care physician within 1-2 weeks of hospital discharge to ensure you are still doing well. Please call if you have any questions or problems. You can reach a [facility] hospitalist on duty at [facility] 24 hours a day by calling [phone] Coronavirus disease 2019 (COVID-19) is a virus that causes a respiratory illness. It is caused by a coronavirus called 2019 novel coronavirus (2019- nCoV). There are many types of coronavirus. Coronaviruses are a very common cause of bronchitis. They may sometimes cause lung infection(pneumonia). Symptoms can range from mild to severe respiratory illness. These viruses are also foundin some animals. COVID-19 was first found in people in [facility], in late 2019. In 2020, several cases of COVID-19 have been confirmed in the [place] Public health officials are working to find the source. How the virus spreads is not yet fully known. It may be spread through droplets of fluid that a person coughs or sneezes into the air. It may be spread if you touch a surface with virus on it, such as a handle or object, and then touch your mouth. What are the symptoms of COVID-19? Some people have no symptoms or mild symptoms. Symptoms may appear 2 to 14 days after contact with the virus. Symptoms can include: Fever Coughing Trouble breathing What are possible complications from COVID-19? In many cases, this virus can cause infection (pneumonia) in both lungs. In some cases, this can cause . How is COVID-19 diagnosed? Your healthcare provider will ask about your symptoms. He or she will also ask about your recent travel and contact with sick people. Testing for the virus is only done through the CDC. If yourhealthcare provider thinks you may have COVID- 19, he or she will work with your local health department and the CDC on testing. Follow all instructions from your healthcare provider. COVID-19 is diagnosed by: Nasal and throat swab. A cotton-tipped swab is wiped inside your nose or throat. This is done to check for viruses in your nasal mucus. Sputum culture. A small sample of mucus coughed from your lungs (sputum) is collected if you have a cough. It is checked for the virus. How is COVID-19 treated? There is currently no medicine to treat the virus. Treatment is done to help your body while it fights the virus. This is known as supportive care. Supportive care may include: Pain medicine. These include acetaminophen and ibuprofen. They are used to help ease pain and reduce fever. Bed rest. This helps your body fight the illness. For severe illness, you may need to stay in the hospital. Care during severe illness may include: IV (intravenous) fluids.These are given through a vein to help keep your body hydrated. Oxygen. Supplemental oxygen or ventilation with a breathing machine (ventilator) may be given. This is done to keep enough oxygen in your body. Are you at risk for COVID-19? If youve been to a place where people have been sick with this virus, you are at risk for infection. You are at risk if you: Recently traveled to an affected area Had contact with a sick person who recently traveled to this area Had contact with a person who was diagnosed with COVID-19 How can COVID-19 be prevented? There is no vaccine yet. The best prevention is to not have contact with the virus. The CDC advises that people should not travel to areas where there are COVID-19 outbreaks right now for any reason that is not urgent. To help prevent spreading the infection, wash your hands often, or use an alcohol-basedhand supervisor printing and stamping. If you are in an area with COVID-19: Wash your hands often. Or use an alcohol-based hand supervisor printing and stamping often. Only touch your eyes, nose, or mouth with clean hands. Dont have contact with people who are sick. Follow local instructions about being in public. For example, you may be told to not use public transport for a period of time. Stay away from markets that have live or animals. Wash your hands after touching any animals. Don't touch animals that may be sick. Dont share eating or drinking tools with sick people. Dont kiss someone who is sick. Clean surfaces often with disinfectant. If you were in an area with COVID-19 in the last 14 days: Call your healthcare provider. He or she can talk with local health staff to see what action may be needed. Follow all instructions from your provider. Take your temperature every morning and evening for at least 14 days. This is to check for fever. Keep a record of the readings. Keep watch for symptoms of the virus. Tell your provider right away if you have symptoms. If you were in an area with COVID-19 and have a fever or other symptoms: Dont panic. Keep in mind that other illnesses can cause similar symptoms. Stay away from work, school, and public places. Limit physical contact with family members. Don't kiss anyone or share eating or drinking utensils. Clean surfaces you touch with disinfectant. This is to help prevent the virus from spreading. Call your healthcare provider. Explain that you have been exposed to COVID-19 and have symptoms. Do this before going to any hospital. Wait for instructions. Keep in mind that healthcare staff may wear protective equipment such as masks, gowns, gloves, and eye protection. You may be put in a separate room. This is to prevent the possible virus from spreading. Tell the healthcare staff about recent travel. This includes local travel on public transport. Staff may need to find other people you have been in contact with. Follow all instructions the healthcare staff give you. If you have been diagnosed with COVID-19 Follow all instructions from your healthcare provider. Dont leave your home, except to get medical care. Call your healthcare providers office before going. They can prepare and give you instructions. This will help prevent the virus from spreading. Dont go to work, school, or public areas. Dont use public transport or taxis. Stay away from other people in your home. Have them wear face masks around you. Dont share household items or food. Wear a face mask if you can. This includes at home or in a medical facility. Cover your face with a tissue when you cough or sneeze. Throw the tissue away. Wash your hands. Wash your hands often. Caregivers should: Follow all instructions from healthcare staff. Wear a face mask and protective clothing as advised. Wash hands often. Keep track of the sick persons symptoms. Clean surfaces, fabrics, and laundry thoroughly. Keep other people away from the sick person. When to call your healthcare provider Call your healthcare provider: If youve recently traveled and have symptoms If you have been diagnosed with COVID-19 and your symptoms are worse To learn more To find out more about COVID-19, visit the CDC website at www.cdc.gov/coronavir us/2019-ncov/index.html. [employer]. [address] [place] [id number]. All rights reserved. This information is not intended as a substitute for professional medical care. Always follow your healthcare professional's instructions. This information has been adapted from [employer] Home Isolation COVID-19 Instructions The following information about Home Isolation is from the CDC Website: https://www.cdc.gov/coronavirus/2019-ncov/hcp/ldfhlzls-rzjqmtv-fvwyjc.html Stay home except to get medical care People who are mildly ill with COVID-19 are able to isolate at home during their illness. You should restrict activities outside your home, except for getting medical care. Do not go to work, school, or public areas. Avoid using public transportation, ride-sharing, or taxis. Separate yourself from other people and animals in your home People: As much as possible, you should stay in a specific room and away from other people in your home. Also, you should use a separate bathroom, if available. Animals: You should restrict contact with pets and other animals while you are sick with COVID-19, just like you would around other people. Although there have not been reports of pets or other animals becoming sick with COVID-19, it is still recommended that people sick with COVID-19 limit contact with animals until more information is known about the virus. When possible, have another member of your household care for your animals while you are sick. If you are sick with COVID-19, avoid contact with your pet, including petting, snuggling, being kissed or licked, and sharing food. If you must care for your pet or be around animals while you are sick, wash your hands before and after you interact with pets and wear a face mask. Call ahead before visiting your doctor If you have a medical appointment, call the healthcare provider and tell them that you have or may have COVID-19. This will help the healthcare providers office take steps to keep other people from getting infected or exposed. Wear a face mask You should wear a face mask when you are around other people (e.g., sharing a room or vehicle) or pets and before you enter a healthcare providers office. If you are not able to wear a face mask (for example, because it causes trouble breathing), then people who live with you should not stay in the same room with you, or they should wear a face mask if they enter your room. Cover your coughs and sneezes Cover your mouth and nose with a tissue when you cough or sneeze. Throw used tissues in a lined trash can. Immediately wash your hands with soap and water for at least 20 seconds or, if soap and water are not available, clean your hands with an alcohol-based hand supervisor printing and stamping that contains at least 60% alcohol. Clean your hands often Wash your hands often with soap and water for at least 20 seconds, especially after blowing your nose, coughing, or sneezing; going to the bathroom; and before eating or preparing food. If soap and water are not readily available, use an alcohol-based hand supervisor printing and stamping with at least 60% alcohol, covering all surfaces of your hands and rubbing them together until they feel dry. Soap and water are the best option if hands are visibly dirty. Avoid touching your eyes, nose, and mouth with unwashed hands. Avoid sharing personal household items You should not share dishes, drinking glasses, cups, eating utensils, towels, or bedding with other people or pets in your home. After using these items, they should be washed thoroughly with soap and water. Clean all high-touch surfaces everyday High touch surfaces include counters, tabletops, doorknobs, bathroom fixtures, toilets, phones, keyboards, tablets, and bedside tables. Also, clean any surfaces that may have blood, stool, or body fluids on them. Use a household cleaning spray or wipe, according to the label instructions. Labels contain inst ructions for safe and effective use of the cleaning product including precautions you should take when applying the product, such as wearing gloves and making sure you have good ventilation during use of the product. Monitor your symptoms Seek prompt medical attention if your illness is worsening (e.g., difficulty breathing).Beforeseeking care, call your healthcare provider and tell them that you have, or are being evaluated for, COVID-19. Put on a face mask before you enter the facility. These steps will help the healthcare providers office to keep other people in the office or waiting room from getting infected or exposed. Ask your healthcare provider to call the local or state health department. Persons who are placed under active monitoring or facilitated self- monitoring should follow instructions provided by their local health department or occupational health professionals, as appropriate. When working with your local health department check their available hours. If you have a medical emergency and need to call 911, notify the dispatch personnel that you have, or are being evaluated for COVID-19. If possible, put on a face mask before emergency medical services arrive. Discontinuing home isolation Patients with confirmed COVID-19 should remain under home isolation precautions until the risk of secondary transmission to others is thought to be low. The decision to discontinue home isolation precautions should be made on a [id number] basis, in consultation with healthcare providers and state and local health departments. Pending Studies at Discharge: No Stand-Alone Forms: My [facility], Smoking Cessation Medications and DC Order Prescriptions: New Probiotic 100 billion cell capsule 1 cap PO DAILY 30 Days Qty: 30 RF: 0 Continued alendronate [Fosamax] 70 mg Tablet 1 tab PO WK RF: 0 Caltrate 600 plus D 600 mg (1,500 mg)-800 unit Tablet,Chewable 1 tab PO QAM RF: 0 cholecalciferol (vitamin D3) [Vitamin D3] 125 mcg (5,000 unit) tablet 5,000 unit PO QAM RF: 0 biotin 1 mg capsule 1 mg PO QAM RF: 0 Centrum Silver Women 8 mg iron-400 mcg-300 mcg tablet 1 tab PO QAM RF: 0 magnesium 250 mg tablet 250 mg PO QAM RF: 0 Discharge Orders: Discharge Order (Routine); Ordered 01/25/21 Ordered By: Saud Ibarra/Other Patient Handouts: A1C Admission Data Admit Date/Time: 01/22/21 21:16 Attending Provider: Saud Raymond Admit Provider: Wade Kincaid Primary Care Provider: Manas Uribe Other Providers: Wade Kincaid Other Interventions: Discharge Summary Assessment (RN) Last Done: 01/25/21 12:46
== END 2021-01-25 13:44 | disposition home or self-care (01) | DRG 178 ==
LOC: ED 17:07 → SUATTDRO 21:16 → 2S 21:16